=== PATIENT | male | born 1970 | race Caucasian/White ===

== ENCOUNTER → 2021-08-12 16:31 | Outpatient (ROUT) | payer OTHER, SELFPAY ==
[2021-08-12 17:34] LABS: COVID19 -Nasal RAPID Negative (Negative)
== END ==
PROVIDERS: PCP Family Medicine; Visit Provider Family Medicine
DX: Z20.822 Contact with and (suspected) exposure to COVID-19 (principal)
CPT/HCPCS: 87635

== ENCOUNTER → 2021-08-17 12:26 | Outpatient (ROUT) | payer OTHER, SELFPAY ==
[2021-08-17 13:55] LABS: COVID19 -Nasal RAPID Negative (Negative)
== END ==
PROVIDERS: PCP Family Medicine; Visit Provider Family Medicine
DX: Z20.822 Contact with and (suspected) exposure to COVID-19 (principal)
CPT/HCPCS: 87635

== ENCOUNTER 2022-01-24 20:11 | Emergency (ER) | payer OTHER, SELFPAY ==
[2022-01-24 20:15] VITALS: BP 174/102; PULSE 95; RESP 16; TEMP 36.9; O2SAT 99
--- NOTE | 2022-01-25 00:09 | ED.DENTAL ---
HPI - Dental/Oral General Chief complaint: Dental/Oral Stated complaint: Tooth infection Time Seen by Provider: 01/24/22 23:59 Source: patient Mode of arrival: Ambulatory History of Present Illness HPI Narrative: Patient is a 51-year-old male who presents with dental infection. He says he has bad teeth. Yesterday he started having some pain this morning his face is swelling. He denies any fever or chills. Pain is getting progressively worse. No difficulty swallowing it is not involving his neck. No other symptoms this time. He says this has happened to him previously. Related Data Previous Rx's Medication Instructions Recorded amoxicillin 500 mg capsule 500 mg PO BID #14 cap 01/25/22 Allergies Allergy/AdvReac Type Severity Reaction Status Date / Time No Known Drug Allergies Allergy Verified 01/24/22 20:20 Review of Systems Review of Systems Narrative: GENERAL: Denies chills,fever HEENT: See HPI RESPIRATORY: Denies dyspnea, cough, wheezing CARDIOVASCULAR: Denies chest pain, palpitations GASTROINTESTINAL: Denies nausea, vomiting MUSCULOSKELETAL: Denies extremity pain, injury SKIN: No rash, no laceration, no pruritus NEUROLOGIC: Denies weakness, dizziness, headache, numbness 8 point review of systems is negative except for those stated above and HPI Patient History Social History Smoking Status: Current every day smoker Smoking Status: Current every day smoker alcohol intake frequency: a few times a week Exam Initial Vital Signs Initial Vital Signs: Vital Signs Temperature 98.5 F 01/24/22 20:15 Pulse Rate 95 H 01/24/22 20:15 Respiratory Rate 16 01/24/22 20:15 Blood Pressure 174/102 H 01/24/22 20:15 Pulse Oximetry 99 01/24/22 20:15 GENERAL: Well-appearing, well-nourished and in no acute distress. HEENT: Right facial swelling no dental abscess multiple dental caries no trismus no drooling CARDIOVASCULAR: peripheral pulses in tact, cap refill <2 sec RESPIRATORY: No respiratory distress, speaks in full sentences without difficulty EXTREMITIES: Normal range of motion, no clubbing or edema. Neurovascularly intact NEUROLOGICAL: Cranial nerves II through XII grossly intact. Normal gait and speech. SKIN: Warm, dry, no petechiae, no rashes or lesions. Course Orders Ordered: Discontinued Medications Amoxicillin (Amoxicillin 250 Mg Prepack) 1 bottle MIS SEEINSTR ONE Stop: 01/25/22 00:10 Last Admin: 01/25/22 00:15 Dose: 1 bottle Documented by: THAIS Ibuprofen (Ibuprofen 400 Mg Tablet) 800 mg PO NOW ONE Stop: 01/25/22 00:10 Last Admin: 01/25/22 00:15 Dose: 800 mg Documented by: THAIS Vital Signs Vital signs: Vital Signs - 8 hr 01/24/22 20:15 Temperature 98.5 F Pulse Rate 95 H Respiratory Rate 16 Blood Pressure 174/102 H Pulse Oximetry 99 Discharge Plan Departure Patient Disposition: Home Clinical Impression: Dental infection Instructions: DI for Dental Pain Activity Restrictions/Additional Instructions: *You have been diagnosed with dental infection *What to do: At this time take antibiotics and monitor closely *Continue to take medications as directed Amoxicillin 500 mg twice a day Tylenol 650 mg 4-6 hours if needed for hyot-ja-qmpetkoa pain Motrin 600 mg every 6 hours if needed for nakq-sd-tabwctac pain *Follow up with your primary care provider in 2-3 days or call [phone] *Return to ER if you should have increasing facial swelling fevers, difficulty swallowing or any new, worsening or concerning symptoms Prescriptions: New amoxicillin 500 mg capsule 500 mg PO BID Qty: 14 0RF Referrals: Kristi Demarco MD [Primary Care Provider] -
[2022-01-25] MEDS: AMOXICILLIN 250 MG PREPACK 1 BOTTLE MISC (00:15)
[2022-01-25] MEDS: IBUPROFEN 400 MG TABLET 800 MG PO (00:15)
== END 2022-01-25 00:21 | disposition home or self-care (01) ==
PROVIDERS: Emergency Provider Emergency Medicine; PCP Family Medicine
DX: K04.7 Periapical abscess without sinus (principal); F17.200 Nicotine dependence, unspecified, uncomplicated
CPT/HCPCS: 99282; 99283

== ENCOUNTER 2024-04-02 14:01 | Emergency (ER) | payer OTHER, SELFPAY ==
[2024-04-02] VITALS (16 sets, daily range): BP systolic 142–173; BP diastolic 75–96; PULSE 69–98; RESP 16; TEMP 36.9; O2SAT 94–97; BMI 30.7
--- NOTE | 2024-04-02 14:17 | DI.RAD.S_ITS ---
PROCEDURE: XR CHEST 1V INDICATIONS: chest pain TECHNIQUE: One view of the chest was acquired. COMPARISON: [facility], , CHEST 2 VIEW, 06/20/2017, 11:55. FINDINGS: Surgical changes and devices: None. Lungs and pleura: Lungs are clear. No pleural effusions or pneumothorax. Mediastinum: Mediastinal contours appear normal. Heart size is normal. Bones and chest wall: No suspicious bony lesions. Overlying soft tissues appear unremarkable. IMPRESSION: No acute cardiopulmonary abnormality is seen. Dictated by: Terry Reeves M.D. on 04/02/2024 at 14:35 Approved by: Terry Reeves M.D. on 04/02/2024 at 14:35
[2024-04-02 14:33] LABS: Add Manual Diff / Slide Review NO; Basophils Absolute Auto 0 /uL (0-100); Basophils Percent Auto 0.5 % (0-2); Eosinophils Absolute Auto 100 /uL (0-450); Eosinophils Percent Auto 1.3 % (2-4); Hematocrit 49.8 % (41-53); Hemoglobin 17.2 g/dL (13.5-17.5); Lymphocytes Absolute Auto 2000 /uL (1100-4500); Lymphocytes Percent Auto 24.5 % (25-40); Mean Corpuscular HGB Conc 34.5 % (30-36); Mean Corpuscular Hemoglobin 33.9 PG (26-34); Mean Corpuscular Volume 98.3 fL (80-100); Monocytes Absolute Auto 800 /uL (0-900); Monocytes Percent Auto 9.6 % (3-14); Neutrophils Absolute Auto 5300 /uL (1500-7000); Neutrophils Percent Auto 64.1 % (50-75); Platelet Count 295 X10^3/uL (150-400); Red Blood Cell Count 5.06 X10^6/uL (4.5-5.9); Red Cell Distribution Width 13.1 % (11.6-14.8); White Blood Cell Count 8.3 X10^3/uL (4.5-11.0)
[2024-04-02 14:39] LABS: INR 0.9 (0.9-1.3); Prothrombin Time 10.7 SECONDS (9.4-12.5)
[2024-04-02 14:42] LABS: PTT Partial Thromboplastin Tim 36 SECONDS (25.1-36.5)
[2024-04-02 15:05] LABS: Alanine Aminotransferase 34 IU/L (<50); Albumin 4.9 g/dL (3.5-5.0); Albumin Globulin Ratio 1.6 (1.0-2.8); Alkaline Phosphatase 98 U/L (38-126); Aspartate Aminotransferase 31 IU/L (17-59); BUN Creatinine Ratio 9.2 (6-22); Bilirubin Total 0.6 mg/dL (0.2-1.3); Blood Urea Nitrogen 7 mg/dL (9-20); Calcium 9.3 mg/dL (8.4-10.2); Carbon Dioxide 27 mmol/L (22-32); Chloride 103 mmol/L (98-107); Creatine Kinase 93 U/L (55-170); Estimated Glomerular Filt Rate > 60 mL/min (>60); Glucose 104 mg/dL (70-100); HEMOLYSIS < 15 (0-50); Lipase 98 U/L (23-300); Magnesium 2.2 mg/dL (1.6-2.3); Sodium 140 mmol/L (137-145); Total Protein 7.9 g/dL (6.3-8.2)
[2024-04-02 15:15] LABS: Troponin I < 0.012 ng/mL (0.01-0.034)
--- NOTE | 2024-04-02 16:09 | ED_ITS ---
HPI - Syncope General Chief Complaint: Dizziness Stated Complaint: Near Syncope/Dizzy Time Seen by Provider: 04/02/24 16:09 Source: patient and EMS Mode of arrival: EMS History of Present Illness HPI narrative: 53-year-old male complains of dizziness, he was leaning down to pet his dog, then stood upright quickly, felt lightheaded, no sensation of vertigo or spinning. No associated chest pain or shortness of breath. No associated weakness or numbness to face arm or legs. He felt better holding still, did not pass out. He had not been having any recent nausea or vomiting or diarrhea. Denies black or red stools. No recent fevers chills, headache, neck pain, sinus congestion, sneezing. No change in medications. Denies drug and alcohol use. Related Data Previous Rx's Medication Instructions Recorded amoxicillin 500 mg capsule 500 mg PO BID #14 caps 01/25/22 Allergies Allergy/AdvReac Type Severity Reaction Status Date / Time No Known Drug Allergies Allergy Verified 01/24/22 20:20 Patient History Social History Smoking Status: Current every day smoker Smoking Status: Current every day smoker alcohol intake frequency: 3 or more drinks per day Alcohol type: beer Substance Use Type: does not use Exam Narrative Exam Narrative: GENERAL: Well-developed patient, in mild distress. HEAD: Atraumatic. Normocephalic. EYES: Pupils equal round and reactive. Extraocular motions intact. No scleral icterus. No injection or drainage. ENT: Nose without bleeding, purulent drainage. Throat without erythema, tonsillar hypertrophy or exudate. Airway patent. NECK: Trachea midline. Non tender CARDIOVASCULAR: Regular rate and rhythm without murmurs, gallops, or rubs. RESPIRATORY: Clear to auscultation. Breath sounds equal bilaterally. No wheezes, rales, or rhonchi. GASTROINTESTINAL: Abdomen soft, non-tender, nondistended. EXTREMITIES: No edema or joint tenderness. BACK: Nontender without deformity or crepitance. No flank tenderness. NEURO: Alert, cooperative, clear speech, no facial droop, pupils equal round reactive to light, extraocular muscles intact, motor 5/5 upper and lower strength. SKIN: No rash or erythema of visible areas Initial Vital Signs Initial Vital Signs: Vital Signs Blood Pressure 173/86 H 04/02/24 14:00 Course Orders Ordered: ED Orders 04/02/24 14:00 Complete Blood Count AUTO DIFF Stat Comprehensive Metabolic Panel Stat Lipase Stat Magnesium Stat PTT Partial Thromboplastin [place] Stat Prothrombin Time INR Stat Troponin & CK Cardiac Panel Stat 04/02/24 14:17 XR chest 1V Stat EKG-12 Lead Stat 04/02/24 16:10 CT head/brain wo con Stat 04/02/24 18:10 Troponin I Stat Discontinued Medications Sodium Chloride (Normal Saline 0.9%) 1,000 mls @ 1,000 mls/hr IV BOLUS ONE Stop: 04/02/24 18:38 Last Infusion: 04/02/24 18:30 Dose: Infused Documented By: Admin: 04/02/24 17:48 Dose: 1,000 mls/hr Documented By: Vital Signs Vital signs: Vital Signs - 8 hr 04/02/24 14:00 04/02/24 14:09 04/02/24 14:15 Temperature 98.5 F Pulse Rate 98 H 84 Respiratory Rate 16 Blood Pressure 173/86 H 173/86 H 144/80 H Pulse Oximetry 97 Oxygen Delivery Method Room Air 04/02/24 15:00 04/02/24 15:31 04/02/24 15:53 Temperature Pulse Rate 77 73 77 Respiratory Rate Blood Pressure 154/86 H 156/92 H Pulse Oximetry 95 96 Oxygen Delivery Method Room Air 04/02/24 15:54 04/02/24 15:54 04/02/24 16:00 Temperature Pulse Rate 82 75 Respiratory Rate Blood Pressure 161/90 H Pulse Oximetry 95 95 Oxygen Delivery Method 04/02/24 16:01 04/02/24 16:01 04/02/24 16:23 Temperature Pulse Rate 75 77 Respiratory Rate Blood Pressure 166/82 H Pulse Oximetry 95 97 Oxygen Delivery Method 04/02/24 16:23 04/02/24 16:30 04/02/24 16:30 Temperature Pulse Rate 83 Respiratory Rate Blood Pressure 142/75 H 146/83 H Pulse Oximetry 95 Oxygen Delivery Method 04/02/24 17:00 04/02/24 17:00 04/02/24 17:30 Temperature Pulse Rate 82 84 Respiratory Rate Blood Pressure 145/89 H Pulse Oximetry 95 94 Oxygen Delivery Method 04/02/24 17:30 04/02/24 18:00 04/02/24 18:00 Temperature Pulse Rate 78 Respiratory Rate Blood Pressure 155/96 H 155/86 H Pulse Oximetry 95 Oxygen Delivery Method 04/02/24 18:30 04/02/24 18:30 04/02/24 19:00 Temperature Pulse Rate 69 72 Respiratory Rate Blood Pressure 148/90 H Pulse Oximetry 96 96 Oxygen Delivery Method Room Air 04/02/24 19:00 Temperature Pulse Rate Respiratory Rate Blood Pressure 150/85 H Pulse Oximetry Oxygen Delivery Method MDM - Syncope Lab Data Attestation: I reviewed the patient's lab results. 04/02/24 14:00 04/02/24 14:00 Labs: Lab Results 04/02/24 04/02/24 Range/Units 14:00 18:10 WBC 8.3 (4.5-11.0) X10^3/uL RBC 5.06 (4.5-5.9) X10^6/uL Hgb 17.2 (13.5-17.5) g/dL Hct 49.8 (41-53) % MCV 98.3 (80-100) fL MCH 33.9 (26-34) PG MCHC 34.5 (30-36) % RDW 13.1 (11.6-14.8) % Plt Count 295 (150-400) X10^3/uL Neut % (Auto) 64.1 (50-75) % Lymph % (Auto) 24.5 L (25-40) % [place] % (Auto) 9.6 (3-14) % Eos % (Auto) 1.3 L (2-4) % Baso % (Auto) 0.5 (0-2) % Neut # (Auto) 5300 (1625-3903) /uL Lymph # (Auto) 2000 (0362-8049) /uL [place] # (Auto) 800 (0-900) /uL Eos # (Auto) 100 (0-450) /uL Baso # (Auto) 0 (0-100) /uL PT 10.7 (9.4-12.5) SECONDS INR 0.9 (0.9-1.3) APTT 36 (25.1-36.5) SECONDS Sodium 140 (137-145) mmol/L Potassium 4.0 (3.4-5.1) mmol/L Chloride 103 (98-107) mmol/L Carbon Dioxide 27 (22-32) mmol/L BUN 7 L (9-20) mg/dL Creatinine 0.76 (0.66-1.25) mg/dL Estimated GFR > 60 (>60) mL/min BUN/Creatinine Ratio 9.2 (6-22) Glucose 104 H (70-100) mg/dL Calcium 9.3 (8.4-10.2) mg/dL Magnesium 2.2 (1.6-2.3) mg/dL Total Bilirubin 0.6 (0.2-1.3) mg/dL AST 31 (17-59) IU/L ALT 34 (<50) IU/L Alkaline Phosphatase 98 (38-126) U/L Total Creatine Kinase 93 (55-170) U/L Troponin I < 0.012 < 0.012 (0.01-0.034) ng/mL Total Protein 7.9 (6.3-8.2) g/dL Albumin 4.9 (3.5-5.0) g/dL Globulin 3.0 (1.7-4.1) g/dL Albumin/Globulin Ratio 1.6 (1.0-2.8) Lipase 98 (23-300) U/L Urine Dip Bedside Urine Glucose Negative Bedside Urine Bilirubin - Negative Bedside Urine Ketone - Negative Urine Specific [place] 1.010 Bedside Urine Occult Blood - Negative Bedside Urine pH 6.5 Bedside Urine Protein - Negative Bedside Urine Urobilinogen - Negative Bedside Urine Nitrite - Negative Bedside Urine Leukocytes - Negative Esterase Imaging Data Chest x-ray: Radiologist's Impression: [address] [address] XRay Report Signed Patient: Anselmo Arias MR#: [id number] : 1970 Acct:[id number] Age/Sex: 53 / M Date of Service: 04/02/24 Loc: ED Accession Number: [id number] Procedure: XR chest 1V Ordering Provider: Lawrence Chong MD PROCEDURE: XR CHEST 1V INDICATIONS: chest pain TECHNIQUE: One view of the chest was acquired. COMPARISON: [facility], , CHEST 2 VIEW, 06/20/2017, 11:55. FINDINGS: Surgical changes and devices: None. Lungs and pleura: Lungs are clear. No pleural effusions or pneumothorax. Mediastinum: Mediastinal contours appear normal. Heart size is normal. Bones and chest wall: No suspicious bony lesions. Overlying soft tissues appear unremarkable. IMPRESSION: No acute cardiopulmonary abnormality is seen. Dictated by: Terry Reeves M.D. on 04/02/2024 at 14:35 Approved by: Terry Reeves M.D. on 04/02/2024 at 14:35 CT scan - head: Radiologist's Impression: [address] [address] [address] Scan Report Signed Patient: Anselmo Arias MR#: [id number] : 1970 Acct:[id number] Age/Sex: 53 / M Date of Service: 04/02/24 Loc: ED Accession Number: [id number] Procedure: CT head/brain wo con Ordering Provider: Lawrence Chong MD PROCEDURE: CT HEAD/BRAIN WO CON INDICATIONS: near syncope, dizzy TECHNIQUE: Noncontrast 4.5 mm thick angled axial sections acquired from the foramen magnum to the vertex, with coronal and sagittal reformats. For radiation dose reduction, the following was used: automated exposure control, adjustment of mA and/or kV according to patient size. COMPARISON: None. FINDINGS: Image quality: Diagnostic. CSF spaces: Basal cisterns are patent. No extra-axial fluid collections. Ventricles are normal in size and shape. Brain: No midline shift. No intracranial masses or hemorrhage. Velez-white matter interface is normal. Skull and face: Calvarium and visualized facial bones are intact, without suspicious lesions. Sinuses: Visualized sinuses and mastoids are clear. IMPRESSION: No acute intracranial pathology. Approved by: Brittany Hinojosa M.D.,Ph.D. on 04/02/2024 at 15:57 ECG Data Attestation: I personally reviewed and interpreted this ECG as follows: Interpretation: Normal sinus rhythm with rate of 82, no obvious ST segment elevation or depression changes. Normal intervals ND, QRS, QTC. [facility] Narrative Medical decision making narrative: 53-year-old male has dizziness with bending over and standing up quickly, positional component, no vertigo, sounds orthostatic in nature, no obvious dehydration risk factors, no black or red stools. No fevers or chills. No injury trauma. IV fluid bolus. EKG and troponin negative. CT head negative. We will obtain interval troponin. In his reassess symptoms after IV hydration. Interval repeat troponin also negative. No recurrence of symptoms. Patient was able to take oral fluid challenge well, ambulated in the department without symptoms. He feels well, does not want further testing, we will follow up as an outpatient with his regular doctor for further testing is needed. Home with family. Discharge Plan Departure Patient Disposition: Home Clinical Impression: Dizziness Instructions: DI for Dizziness-Nonvertigo Activity Restrictions/Additional Instructions: Dizziness symptoms with bending over and rising up quickly, positional in nature, possibly related to hydration status, IV fluids given in the emergency department, symptoms improved. Other testing such as serial blood tests and EKG were not suggestive of heart attack at this time. Electrolytes are unremarkable. CT head study was also unremarkable. Symptoms did not seem suggestive of stroke at this time. We did discuss further testing, declined any further testing and monitor here in the emergency department. You would consider further workup as an outpatient for now. Recheck with your regular doctor in the next 2-3 days as an outpatient. Return to this/nearest emergency department for any change worsening symptoms or any concerns prior Prescriptions: No Action amoxicillin 500 mg capsule 500 mg PO BID Qty: 14 0RF Referrals: Kristi Demarco MD [Primary Care Provider] - Stand Alone Forms: Patient Portal/API
[2024-04-02] MEDS: SODIUM CHLORIDE 0.9% 1,000 ML 1000 ML IV (17:48)
[2024-04-02 18:40] LABS: Troponin I < 0.012 ng/mL (0.01-0.034)
== END 2024-04-02 19:41 | disposition home or self-care (01) ==
PROVIDERS: Emergency Provider Emergency Medicine; PCP Family Medicine
DX: R42 Dizziness and giddiness (principal); R03.0 Elevated blood-pressure reading, without diagnosis of hypertension
CPT/HCPCS: 36415; 70450; 71045; 80053; 81003; 82550; 83690; 83735; 84484; 85025; 85610; 85730; 93005; 99284